=== PATIENT | female | born 2000 | race Caucasian/White ===

== ENCOUNTER 2021-08-15 10:30 | Emergency (ER) | payer SELFPAY ==
[2021-08-15 10:52] VITALS: BP 107/69; PULSE 88
[2021-08-15] MEDS: Sodium Chloride 0.9% 1,000 ML IV ONE (11:09)
[2021-08-15] MEDS: Ondansetron 4 MG/2 ML SDV IVPUSH ONE (11:09)
[2021-08-15] MEDS: Acetaminophen 500 MG Tab PO ONE (11:13)
[2021-08-15] MEDS: Sodium Chloride 0.9% 10 ML Syringe FLUSH PRN (11:13)
[2021-08-15 11:37] LABS: CHLORIDE,CL 106 mmol/L (98-107); SODIUM,NA 139 mmol/L (136-145)
[2021-08-15] MEDS: Ketorolac 30 MG/ML SDV IVPUSH ONE (12:01)
[2021-08-15] MEDS: Ondansetron 4 MG Tab.DIS PO ONE (14:01)
== END 2021-08-15 13:00 | disposition home or self-care (01) ==
LOC: KA.ED 10:30
DX: U07.1 COVID-19 (principal); Z88.6 Allergy status to analgesic agent; Z88.8 Allergy status to other drugs, medicaments and biological substances
CPT/HCPCS: 80053; 83690; 84703; 85025; 87804; 96374; 96375; 99283; 99284-25; A9270-GY; J1885; J2405; J7030; U0002